=== PATIENT | male | born 1975 | race Caucasian/White ===

== ENCOUNTER 2017-10-11 11:41 | Outpatient (CLI) | payer OTHER ==
[~2017-10-11 11:41] MED LIST: ACET-2619 PO; SIMV20TA1 PO; SIMV20TA6 PO
== END 2017-10-11 21:30 | disposition home or self-care (01) ==
LOC: MRD 11:41
DX: M25.532 Pain in left wrist (principal); M25.531 Pain in right wrist; M67.431 Ganglion, right wrist; M25.512 Pain in left shoulder; M25.511 Pain in right shoulder
CPT/HCPCS: 73030; 73110

== ENCOUNTER 2017-12-20 18:27 | Emergency (ER) | payer OTHER ==
[~2017-12-20] VITALS: Ht 177.8 cm; Wt 122.5 kg
[2017-12-20 18:33] VITALS: BP 112/61
--- NOTE | 2017-12-20 19:21 | NUR ---
42/M CAME IN W C/O RT FOOT PAIN, REDNESS AND SWELLING SINCE 11/17/17. PT REPORTS HE WAS SEEN BY PMD AND URGENT CARE SINCE AND IS ON KEFLEX PO WITH 2 DOSES LEFT WITHOUT IMPROVEMENT OF SYMPTOMS. PT REPORTS THROBBING PAIN WHILE WALKING, DENIES NUMBNESS/TINGLING OR WEAKNESS, +PMSC. RT FOOT NOTED WITH EDEMA, ERYTHEMA AND SCALING, NO OPEN WOUND/DRAINAGE NOTED. DENIES FEVER/CHILLS, N/V/D. PMH: GERD, HLD
[2017-12-20 20:05] LABS: MEAN CORPUSCULAR HEMOGLOBIN 30 pg (27-31); MEAN CORPUSCULAR HGB CONC 34 g/dL (33-37); WHITE BLOOD COUNT (AUTO) 8.2 K/uL (4.8-10.8)
[2017-12-20 20:08] LABS: HEMATOCRIT 46.3 % (36-52); HEMOGLOBIN 15.5 g/dL (12.0-18.0); MEAN CORPUSCULAR VOLUME 88 fL (80-94); PLATELET COUNT (AUTO) 213 K/uL (140-450); RED BLOOD CELL COUNT(AUTO) 5.24 MIL/uL (4.20-6.10); RED CELL DISTRIBUTION WIDTH 12.7 % (11.6-13.7)
[2017-12-20 20:14] LABS: CARBON DIOXIDE 28.4 mmol/L (21-32); CREATININE 1.1 mg/dL (0.7-1.3); POTASSIUM 4.4 mmol/L (3.5-5.1)
[2017-12-20 20:17] LABS: ALBUMIN 4.2 g/dL (3.4-5.0); TOTAL BILIRUBIN 0.4 mg/dL (0.0-1.0)
[2017-12-20 20:35] LABS: EOSINOPHILS % (MANUAL) 1 % (0-4); LYMPHOCYTES % (MANUAL) 38 % (20-46); MONOCYTES % (MANUAL) 11 % (5-12)
[2017-12-20] MEDS ORDERED: diphenhydrAMINE 50 MG CAP PO ONE (21:00)
--- NOTE | 2017-12-20 21:20 | NUR ---
Patient discharged with v/s stable. Written and verbal after care instructions given and explained. Patient alert, oriented and verbalized understanding of instructions. Ambulatory with steady gait. All questions addressed prior to discharge. ID band removed. Patient advised to follow up with PMD. Rx of DIFLUCAN, CLINDAMYIN, BENADRYL AND HYDROCOROTISONE given. Patient educated on indication of medication including possible reaction and side effects. Opportunity to ask questions provided and answered.
[2017-12-20 21:21] VITALS: BP 112/66
== END 2017-12-20 21:20 | disposition home or self-care (01) ==
LOC: MED 18:27
DX: L03.115 Cellulitis of right lower limb (principal); K21.9 Gastro-esophageal reflux disease without esophagitis; Z79.899 Other long term (current) drug therapy
CPT/HCPCS: 36415; 80053; 85025; 99284; Q0163